=== PATIENT | female | born 1940 | race Caucasian/White ===

== ENCOUNTER 2020-12-19 10:47 | Emergency (ER) | payer OTHER, SELFPAY ==
[2020-12-19] VITALS (10 sets, daily range): BP systolic 167–200; BP diastolic 71–89; PULSE 62–98; RESP 14–22; TEMP 36.7; O2SAT 97–99
[2020-12-19 11:43] LABS: Add Manual Diff / Slide Review NO; Basophils Absolute Auto 100 /uL (0-100); Basophils Percent Auto 0.8 % (0-2); Eosinophils Absolute Auto 200 /uL (0-450); Eosinophils Percent Auto 3.2 % (2-4); Hematocrit 40.3 % (36-46); Hemoglobin 13.4 g/dL (12.0-16.0); Lymphocytes Absolute Auto 1200 /uL (1100-4500); Lymphocytes Percent Auto 17.1 % (25-40); Mean Corpuscular HGB Conc 33.2 % (30-36); Mean Corpuscular Volume 90.3 fL (80-100); Monocytes Absolute Auto 400 /uL (0-900); Neutrophils Absolute Auto 5400 /uL (1500-7000); Neutrophils Percent Auto 73.9 % (50-75); Platelet Count 203 X10^3/uL (150-400); Red Blood Cell Count 4.46 X10^6/uL (4.0-5.2); Red Cell Distribution Width 14.2 % (11.6-14.8); White Blood Cell Count 7.3 X10^3/uL (4.5-11.0)
[2020-12-19 11:47] LABS: INR 1.1 (0.9-1.3); Prothrombin Time 12.1 SECONDS (10.1-12.7)
[2020-12-19 11:50] LABS: PTT Partial Thromboplastin Tim 34 SECONDS (26.4-36.2)
[2020-12-19 11:51] LABS: Alanine Aminotransferase 33 IU/L (<35); Albumin 4.4 g/dL (3.5-5.0); Albumin Globulin Ratio 1.2 (1.0-2.8); Alkaline Phosphatase 92 U/L (38-126); Aspartate Aminotransferase 30 IU/L (14-36); BUN Creatinine Ratio 26.4 (6-22); Bilirubin Total 0.5 mg/dL (0.2-1.3); Blood Urea Nitrogen 19 mg/dL (7-17); Calcium 9.5 mg/dL (8.4-10.2); Carbon Dioxide 28 mmol/L (22-32); Chloride 104 mmol/L (98-107); Creatine Kinase 200 U/L (30-135); Estimated Glomerular Filt Rate > 60.0 mL/min (>60); Globulin 3.8 g/dL (1.7-4.1); Glucose 107 mg/dL (80-110); HEMOLYSIS < 15 (0-50); Lipase 182 U/L (23-300); Magnesium 2.1 mg/dL (1.6-2.3); Potassium 3.7 mmol/L (3.4-5.1); Sodium 140 mmol/L (137-145); Total Protein 8.2 g/dL (6.3-8.2)
[2020-12-19 12:02] LABS: Troponin I < 0.012 ng/mL (0.01-0.034)
[2020-12-19 12:06] LABS: CKMB % Relative Index 1.6 % (1.5-5.0); Creatine Kinase MB 3.14 ng/mL (<2.37)
[2020-12-19 12:32] LABS: TSH w/ Reflex to FT4 3.12 uIU/mL (0.47-4.68)
[2020-12-19 13:14] LABS: Bacteria Urine None Seen; RBC Urine None Seen (0-5/HPF); WBC Urine None Seen (0-5/HPF)
--- NOTE | 2020-12-19 13:28 | ED.GENADULT ---
HPI - General Adult General Chief complaint: Hypertension Stated complaint: blood pressure high for the last 3 days Time Seen by Provider: 12/19/20 12:44 Source: patient Mode of arrival: Ambulatory Limitations: no limitations History of Present Illness HPI narrative: Patient is a 80-year-old female with history of hypertension presenting with elevated blood pressure and back pain. She has been taking her blood pressure the last few days blood pressures have ranged from a systolic of 130 up to 190. She is currently hypertensive in the emergency department. She denies any chest pain or shortness of breath. Back pain seems to be in her thoracic area but also complaining of some left leg. She states that she takes 0.5 mg of amlodipine for blood pressure she took it last night. She denies any headache. He comes in today could her blood pressure remains persistently elevated. She has not taken anything yet for her back pain she denies any injury seems to be in her thoracic area. Due to mild language barrier person in room is translating. She is able to understand some and answer some questions. Related Data Allergies Allergy/AdvReac Type Severity Reaction Status Date / Time No Known Drug Allergies Allergy Verified 12/19/20 11:12 Review of Systems Review of Systems Narrative: GENERAL: Denies chills, fatigue, malaise, fever, sweats, travel HEENT: Denies sinus pain, ear pain, sore throat, difficulty swallowing, neck pain RESPIRATORY: Denies dyspnea, cough, wheezing, hemoptysis, sputum. CARDIOVASCULAR: Denies chest pain, palpitations, orthopnea, edema GASTROINTESTINAL: Denies nausea, vomiting, abdominal pain, diarrhea, constipation, melena. : Denies dysuria, frequency, incontinence, hematuria, urinary retention, flank pain. MUSCULOSKELETAL: See HPI SKIN: No rash, no erythema, no pruritus NEUROLOGIC: Denies weakness, dizziness, headache, numbness, change in speech, confusion PSYCHIATRIC: No concerning psychosocial issues. 12 point review of systems is negative except for those stated above and HPI Patient History Medical History Hypertension Social History Smoking Status: Never smoker Smoking Status: Never smoker alcohol intake frequency: 0-2 drinks per day Substance Use Type: does not use Exam Initial Vital Signs Initial Vital Signs: Vital Signs Temperature 98.1 F 12/19/20 11:08 Pulse Rate 98 H 12/19/20 11:08 Respiratory Rate 14 12/19/20 11:08 Blood Pressure 200/89 H 12/19/20 11:08 Pulse Oximetry 99 12/19/20 11:08 GENERAL: Alert well-appearing 80-year-old female and in no acute distress. HEENT: Head atraumatic,EOMI, pupils reactive, face symmetric, moist mucous membranes CARDIOVASCULAR: Regular rate and rhythm without murmurs, rubs or gallops. RESPIRATORY: Breath sounds equal bilaterally, no wheezes rales or rhonchi. ABDOMEN: Soft, nontender. Normoactive bowel sounds all 4 quadrants. No guarding or rebound. BACK: No vertebral tenderness no step-off, no real lower lumbar pain. Able to lift each leg without causing back pain. She is tender more in her thoracic but is not reproducible to palpation. : No CVA tenderness EXTREMITIES: Normal range of motion, no clubbing or edema. Neurovascularly intact. No pain and pelvis or hip NEUROLOGICAL: Alert and oriented x4.Normal gait and speech. Cranial nerves II through XII grossly intact. SKIN: Warm, dry, no laceration, no petechiae, no rashes or lesions. Course Orders Ordered: ED Orders 12/19/20 11:17 EKG-12 Lead Stat 12/19/20 11:30 Complete Blood Count AUTO DIFF Stat Comprehensive Metabolic Panel Stat Lipase Stat Magnesium Stat Partial Thromboplastin Time Stat Prothrombin Time INR Stat TSH w/ Reflex to FT4 Stat Troponin & CK Cardiac Panel Stat 12/19/20 12:55 Urine Microscopic Stat 12/19/20 13:47 CT angio chest abdomen pelvis Stat Discontinued Medications Sodium Chloride (Normal Saline 0.9%) 1,000 mls @ 1,000 mls/hr IV BOLUS ONE Stop: 12/19/20 14:37 Last Infusion: 12/19/20 15:19 Dose: 0 mls/hr Documented by: Admin: 12/19/20 14:22 Dose: 1,000 mls/hr Documented by: LAUREN Ketorolac Tromethamine (Ketorolac 30 Mg/Ml Vial) 15 mg IV NOW ONE Stop: 12/19/20 16:32 Last Admin: 12/19/20 16:38 Dose: 15 mg Documented by: CAROLEE Vital Signs Vital signs: Vital Signs - 8 hr 12/19/20 12:48 12/19/20 13:00 12/19/20 13:30 Pulse Rate 65 66 72 Respiratory Rate 22 16 21 Blood Pressure 195/88 H 191/89 H Pulse Oximetry 99 97 98 12/19/20 16:26 12/19/20 16:27 12/19/20 16:30 Pulse Rate 74 72 Respiratory Rate Blood Pressure 174/79 H Pulse Oximetry 98 98 98 12/19/20 16:41 12/19/20 16:43 12/19/20 16:58 Pulse Rate 65 62 Respiratory Rate Blood Pressure 167/71 H 179/81 H Pulse Oximetry 98 98 Medical Decision Making Lab Data Lab results reviewed: Yes I reviewed the patient's lab results. Result diagrams: 12/19/20 11:30 12/19/20 11:30 Labs: Lab Results 12/19/20 12/19/20 12/19/20 Range/Units 11:30 11:30 11:30 WBC 7.3 (4.5-11.0) X10^3/uL RBC 4.46 (4.0-5.2) X10^6/uL Hgb 13.4 (12.0-16.0) g/dL Hct 40.3 (36-46) % MCV 90.3 (80-100) fL MCH 30.0 (26-34) PG MCHC 33.2 (30-36) % RDW 14.2 (11.6-14.8) % Plt Count 203 (150-400) X10^3/uL Neut % (Auto) 73.9 (50-75) % Lymph % (Auto) 17.1 L (25-40) % [place] % (Auto) 5.0 (3-14) % Eos % (Auto) 3.2 (2-4) % Baso % (Auto) 0.8 (0-2) % Neut # (Auto) 5400 (0043-6870) /uL Lymph # (Auto) 1200 (6902-6458) /uL [place] # (Auto) 400 (0-900) /uL Eos # (Auto) 200 (0-450) /uL Baso # (Auto) 100 (0-100) /uL PT 12.1 (10.1-12.7) SECONDS INR 1.1 (0.9-1.3) APTT 34 (26.4-36.2) SECONDS Sodium 140 (137-145) mmol/L Potassium 3.7 (3.4-5.1) mmol/L Chloride 104 (98-107) mmol/L Carbon Dioxide 28 (22-32) mmol/L BUN 19 H (7-17) mg/dL Creatinine 0.72 (0.52-1.04) mg/dL Estimated GFR > 60.0 (>60) mL/min BUN/Creatinine Ratio 26.4 H (6-22) Glucose 107 (80-110) mg/dL Calcium 9.5 (8.4-10.2) mg/dL Magnesium 2.1 (1.6-2.3) mg/dL Total Bilirubin 0.5 (0.2-1.3) mg/dL AST 30 (14-36) IU/L ALT 33 (<35) IU/L Alkaline Phosphatase 92 (38-126) U/L Total Creatine Kinase 200 H (30-135) U/L CK-MB (CK-2) 3.14 H (<2.37) ng/mL CK-MB (CK-2) Rel Index 1.6 (1.5-5.0) % Troponin I < 0.012 (0.01-0.034) ng/mL Total Protein 8.2 (6.3-8.2) g/dL Albumin 4.4 (3.5-5.0) g/dL Globulin 3.8 (1.7-4.1) g/dL Albumin/Globulin Ratio 1.2 (1.0-2.8) Lipase 182 (23-300) U/L TSH (0.47-4.68) uIU/mL Urine RBC (0-5/HPF) Urine WBC (0-5/HPF) Urine Bacteria (None) Ur Culture Indicated? 12/19/20 12/19/20 Range/Units 11:30 12:55 WBC (4.5-11.0) X10^3/uL RBC (4.0-5.2) X10^6/uL Hgb (12.0-16.0) g/dL Hct (36-46) % MCV (80-100) fL MCH (26-34) PG MCHC (30-36) % RDW (11.6-14.8) % Plt Count (150-400) X10^3/uL Neut % (Auto) (50-75) % Lymph % (Auto) (25-40) % [place] % (Auto) (3-14) % Eos % (Auto) (2-4) % Baso % (Auto) (0-2) % Neut # (Auto) (6810-5692) /uL Lymph # (Auto) (2095-3543) /uL [place] # (Auto) (0-900) /uL Eos # (Auto) (0-450) /uL Baso # (Auto) (0-100) /uL PT (10.1-12.7) SECONDS INR (0.9-1.3) APTT (26.4-36.2) SECONDS Sodium (137-145) mmol/L Potassium (3.4-5.1) mmol/L Chloride (98-107) mmol/L Carbon Dioxide (22-32) mmol/L BUN (7-17) mg/dL Creatinine (0.52-1.04) mg/dL Estimated GFR (>60) mL/min BUN/Creatinine Ratio (6-22) Glucose (80-110) mg/dL Calcium (8.4-10.2) mg/dL Magnesium (1.6-2.3) mg/dL Total Bilirubin (0.2-1.3) mg/dL AST (14-36) IU/L ALT (<35) IU/L Alkaline Phosphatase (38-126) U/L Total Creatine Kinase (30-135) U/L CK-MB (CK-2) (<2.37) ng/mL CK-MB (CK-2) Rel Index (1.5-5.0) % Troponin I (0.01-0.034) ng/mL Total Protein (6.3-8.2) g/dL Albumin (3.5-5.0) g/dL Globulin (1.7-4.1) g/dL Albumin/Globulin Ratio (1.0-2.8) Lipase (23-300) U/L TSH 3.12 (0.47-4.68) uIU/mL Urine RBC None seen (0-5/HPF) Urine WBC None seen (0-5/HPF) Urine Bacteria None seen (None) Ur Culture Indicated? Cult not indicated Urine Dip Bedside Urine Glucose Negative Bedside Urine Bilirubin - Negative Bedside Urine Ketone - Negative Urine Specific [place] 1.015 Bedside Urine Occult Blood +++ Bedside Urine pH 6.0 Bedside Urine Protein - Negative Bedside Urine Urobilinogen - Negative Bedside Urine Nitrite - Negative Bedside Urine Leukocytes - Negative Esterase Point of care testing: Urine Dip Bedside Urine Glucose Negative Bedside Urine Bilirubin - Negative Bedside Urine Ketone - Negative Urine Specific [place] 1.015 Bedside Urine Occult Blood +++ Bedside Urine pH 6.0 Bedside Urine Protein - Negative Bedside Urine Urobilinogen - Negative Bedside Urine Nitrite - Negative Bedside Urine Leukocytes - Negative Esterase Imaging Data CT scan - abdomen/pelvis: Radiologist's Impression: PROCEDURE: CT ANGIO CHEST ABDOMEN PELVIS INDICATIONS: back pain TECHNIQUE: Precontrast 5 mm thick sections acquired from the lung apices to the iliac crests. After the administration of intravenous contrast, 2.5 mm thick sections again acquired from the lung apices to the iliac crests. Maximum intensity projection (MIP) oblique sagittal and coronal reformats were then acquired. For radiation dose reduction, the following was used: automated exposure control. COMPARISON: None. FINDINGS: CHEST: Lungs: Scattered subsegmental atelectasis and/or scarring. No focal consolidation. Airway thickening in keeping with nonspecific bronchitis and/or reactive airways disease. Pleura: No pleural effusions or pneumothorax. Heart: Heart size is normal. No pericardial effusion. Chest nodes: Normal. Thyroid gland: Normal Aorta: Ascending thoracic aorta measures 3.8 cm in diameter. No evidence of aortic dissection. No periaortic hemorrhage identified. Scattered vascular calcifications are seen in the aorta. Pulmonary arteries: Normal. No intraluminal filling defect seen. Esophagus: Small hiatal hernia. ABDOMEN: Liver: Normal. Gallbladder: Normal Bile ducts: Normal. Pancreas: Normal. Spleen: Normal. Adrenals: Normal. Kidneys and ureters: Subcentimeter renal foci, statistically cysts, although technically too small to characterize accurately and therefore nonspecific. No hydronephrosis. Stomach and duodenum: Trace hiatal hernia. Bowel: Normal. Other: No free fluid or air. Abdominal nodes: Normal. Aorta and IVC: Normal in size. No evidence of periaortic hemorrhage. No dissection seen. Scattered vascular calcifications in the aorta. Ventral wall: Normal. PELVIS: Bladder: Normal. There is a large right adrenal cystic lesion measuring 5.5 x 4.8 cm. There is grossly simple appearance although recommend further evaluation with dedicated ultrasound and gynecologic consultation based on large size. Inguinal region: No hernia. Pelvic nodes: Normal. Bones: Spondylytic changes and facet arthropathy. T11 mild compression fracture although age indeterminate. IMPRESSION: Age-indeterminate mild T11 compression fracture. Please correlate clinically to determine acuity. No evidence of aortic dissection or periaortic hemorrhage. Large 5.5 cm right adnexal cystic lesion presumably ovarian in etiology. Recommend further evaluation with dedicated ultrasound and gynecologic consultation based on large size, to exclude cystic ovarian neoplasm Findings (including all critical results, if any) and recommendations were personally telephoned and discussed with Dr. Floyd on 12-19-20 16:12 Approved by: Lukas Samuels M.D. on 12/19/2020 at 16:14 ECG Data Attestation: I personally reviewed and interpreted this ECG as follows: Interpretation: Normal sinus rhythm rate 66 p.r. interval 166 QRS [address] changes MDM Narrative Medical decision making narrative: Patient is is persistently hypertension but it does improve. With back pain and mild language barrier concern for possible dissection. Toradol did help with pain. His CT is negative for dissection but she is found to have a 5.5 cm cyst presumed to be ovarian. She is here visiting her son and goes back and forth between [place] she is here for a few more weeks. I have called and spoken with Dr. hinojosa who agrees that this does need further outpatient workup. Patient information is exchanged and her office will call the patient. Son states that she actually has an appointment with a accountant controller in a couple of weeks. For now I recommend increasing amlodipine to 10 mg once a day and also continue checking blood pressure. Discharge Plan Departure Patient Disposition: Home Clinical Impression: Hypertension, Cyst, ovarian Instructions: DI for High Blood Pressure, DI for Ovarian Cyst Activity Restrictions/Additional Instructions: *You have been diagnosed with high blood pressure, ovarian cyst *What to do: Please follow-up with Cardiology in regards to your blood pressure. You will also need follow up four your ovarian cyst. I have called and spoken with Dr. hinojosa you should hear from them early next week if you do not please call their *Continue to take medications as directed Increase amlodipine to 10 mg once daily *Follow up with your primary care provider in 2-3 days *Return to ER if you should have increasing back pain, chest pain, shortness of breath, abdominal pain, persistent vomiting or any new, worsening or concerning symptoms Referrals: [facility] [Outside] [place],MD Lily [Physician] -
[2020-12-19 13:46] LABS: Culture Indicated Urine Cult Not Indicated
--- NOTE | 2020-12-19 13:47 | DI.CT.S_ITS ---
PROCEDURE: CT ANGIO CHEST ABDOMEN PELVIS INDICATIONS: back pain TECHNIQUE: Precontrast 5 mm thick sections acquired from the lung apices to the iliac crests. After the administration of intravenous contrast, 2.5 mm thick sections again acquired from the lung apices to the iliac crests. Maximum intensity projection (MIP) oblique sagittal and coronal reformats were then acquired. For radiation dose reduction, the following was used: automated exposure control. COMPARISON: None. FINDINGS: CHEST: Lungs: Scattered subsegmental atelectasis and/or scarring. No focal consolidation. Airway thickening in keeping with nonspecific bronchitis and/or reactive airways disease. Pleura: No pleural effusions or pneumothorax. Heart: Heart size is normal. No pericardial effusion. Chest nodes: Normal. Thyroid gland: Normal Aorta: Ascending thoracic aorta measures 3.8 cm in diameter. No evidence of aortic dissection. No periaortic hemorrhage identified. Scattered vascular calcifications are seen in the aorta. Pulmonary arteries: Normal. No intraluminal filling defect seen. Esophagus: Small hiatal hernia. ABDOMEN: Liver: Normal. Gallbladder: Normal Bile ducts: Normal. Pancreas: Normal. Spleen: Normal. Adrenals: Normal. Kidneys and ureters: Subcentimeter renal foci, statistically cysts, although technically too small to characterize accurately and therefore nonspecific. No hydronephrosis. Stomach and duodenum: Trace hiatal hernia. Bowel: Normal. Other: No free fluid or air. Abdominal nodes: Normal. Aorta and IVC: Normal in size. No evidence of periaortic hemorrhage. No dissection seen. Scattered vascular calcifications in the aorta. Ventral wall: Normal. PELVIS: Bladder: Normal. There is a large right adrenal cystic lesion measuring 5.5 x 4.8 cm. There is grossly simple appearance although recommend further evaluation with dedicated ultrasound and gynecologic consultation based on large size. Inguinal region: No hernia. Pelvic nodes: Normal. Bones: Spondylytic changes and facet arthropathy. T11 mild compression fracture although age indeterminate. IMPRESSION: Age-indeterminate mild T11 compression fracture. Please correlate clinically to determine acuity. No evidence of aortic dissection or periaortic hemorrhage. Large 5.5 cm right adnexal cystic lesion presumably ovarian in etiology. Recommend further evaluation with dedicated ultrasound and gynecologic consultation based on large size, to exclude cystic ovarian neoplasm Findings (including all critical results, if any) and recommendations were personally telephoned and discussed with Dr. Floyd on 12-19-20 16:12 Approved by: Lukas Samuels M.D. on 12/19/2020 at 16:14
[2020-12-19] MEDS: SODIUM CHLORIDE 0.9% 1,000 ML 1000 ML IV (14:22)
[2020-12-19] MEDS: KETOROLAC 30 MG/ML VIAL 15 MG IV (16:38)
== END 2020-12-19 17:03 | disposition home or self-care (01) ==
PROVIDERS: Emergency Provider Emergency Medicine
DX: I10 Essential (primary) hypertension (principal); N83.201 Unspecified ovarian cyst, right side; M54.9 Dorsalgia, unspecified
CPT/HCPCS: 36415; 71275; 74174; 80053; 81003; 81015; 82550; 82553; 83690; 83735; 84443; 84484; 85025; 85610; 85730; 93005; 93010; 96361; 96374; 99284; J1885

== ENCOUNTER 2023-09-20 10:02 | Emergency (ER) | payer OTHER, SELFPAY ==
[2023-09-20 10:24] VITALS: BP 142/67; PULSE 83; RESP 14; TEMP 36.6; O2SAT 97; BMI 24.5
--- NOTE | 2023-09-20 10:29 | DI.RAD.S_ITS ---
PROCEDURE: XR KNEE RT 3V INDICATIONS: fall with knee pain TECHNIQUE: 3 views of the knee were acquired. COMPARISON: None. FINDINGS: Bones: No fractures or dislocations. Mild tricompartmental osteophytosis. No significant joint space narrowing No suspicious bony lesions. Soft tissues: Small joint effusion. No suspicious soft tissue calcifications. Atherosclerotic vascular calcifications IMPRESSION: No acute osseous abnormality. Small joint effusion. If pain persists with conservative management, consider repeat x-ray in 10-14 days or cross-sectional imaging. Dictated by: Mata Dickinson M.D. on 09/20/2023 at 10:53 Approved by: Mata Dickinson M.D. on 09/20/2023 at 10:54
--- NOTE | 2023-09-20 11:11 | ED.FALL ---
HPI - Fall <Gaviota Padilla PA-C - Last Filed: 09/20/23 11:46> General Chief Complaint: Fall Stated Complaint: fall, rt knee pain Time Seen by Provider: 09/20/23 11:08 Source: patient Mode of arrival: Wheelchair History of Present Illness HPI Narrative: 83-year-old female presents to the ED status post a mechanical fall sustained yesterday. Patient states that her left shoe was caught on some cement, which caused her to fall forward and strike her right knee. Patient denies head strike or loss of consciousness. Patient is not on blood thinners. Patient was able to ambulate right after the fall. Patient is currently able to walk, however endorses pain in the right knee when walking. No numbness, tingling, weakness. Patient took some Tylenol for pain, and patient is wearing a knee brace. Related Data Allergies Allergy/AdvReac Type Severity Reaction Status Date / Time No Known Drug Allergies Allergy Verified 09/20/23 10:24 Review of Systems <Gaviota Padilla PA-C - Last Filed: 09/20/23 11:46> Constitutional Constitutional: Denies chills, Denies fatigue, Denies fever(s), Denies frequent falls, Denies lethargy and Denies weakness Eyes Eyes: Denies change in vision, Denies eye discharge, Denies irritation and Denies loss of vision ENT Ears, Nose, Mouth, and Throat: Denies change in voice, Denies dizziness, Denies neck pain, Denies sore throat and Denies throat swelling Cardiovascular Cardiovascular: Denies chest pain, Denies irregular heart rhythm, Denies lightheadedness, Denies palpitations, Denies dyspnea, Denies dyspnea on exertion and Denies orthopnea Respiratory Respiratory: Denies cough, Denies dyspnea, Denies dyspnea on exertion and Denies wheezing Gastrointestinal Gastrointestinal: Denies abdominal pain, Denies change in bowel habits, Denies diarrhea, Denies nausea and Denies vomiting Musculoskeletal Musculoskeletal: Denies neck pain and Denies numbness Comments: Right knee pain Integumentary/Breasts Skin/Breast: Denies pruritus, Denies erythema, Denies rash and Denies wounds Neurologic Neurologic: Denies behavioral changes, Denies confusion, Denies dizziness, Denies frequent falls, Denies loss of vision, Denies numbness and Denies weakness Psychiatric Psychiatric: Denies anxiety, Denies behavioral changes, Denies confusion, Denies depression, Denies homicidal ideation and Denies suicidal ideation Endocrine Endocrine: Denies fatigue, Denies flushing and Denies palpitations Hematologic/Lymphatic Hematologic/Lymphatic: Denies easy bruising Allergic/Immunologic Allergic/Immunologic: Denies urticaria, Denies throat swelling and Denies wheezing Patient History <Gaviota Padilla PA-C - Last Filed: 09/20/23 11:46> Medical History Hypertension Social History Smoking Status: Never smoker Smoking Status: Never smoker alcohol intake frequency: holidays/special occasions only Substance Use Type: does not use Exam <Gaviota Padilla PA-C - Last Filed: 09/20/23 11:46> Narrative Exam Narrative: Const General:?cooperative, healthy appearing and comfortable [place] Head:?normal to inspection Ears:?hearing grossly normal bilaterally Nose:?external nose normal Face and sinus:?normal facial exam and sinuses nontender Mouth:?oral mucosae normal Throat:?posterior oropharynx normal Eyes General:?appearance normal, both eyes and all related structures Neck Neck:?normal visual inspection and no lymphadenopathy noted Resp Effort & Inspection:?normal respiratory effort Auscultation:?clear to auscultation bilaterally Cardio Rate:?regular rate Rhythm:?regular rhythm Musculoskeletal There is a small abrasion to the front of the right knee. No swelling or bruising. There is full range of motion. Strength and sensation is intact. Patient is able to bear weight and walk. Patient is neurovascularly intact. Neuro General:?patient alert, patient awake and patient oriented x3 Initial Vital Signs Initial Vital Signs: Vital Signs Temperature 97.8 F 09/20/23 10:24 Pulse Rate 83 09/20/23 10:24 Respiratory Rate 14 09/20/23 10:24 Blood Pressure 142/67 H 09/20/23 10:24 Pulse Oximetry 97 09/20/23 10:24 Oxygen Delivery Method Room Air 09/20/23 10:24 <Maris Bass DO - Last Filed: 09/23/23 22:48> Initial Vital Signs Initial Vital Signs: Vital Signs Temperature 97.8 F 09/20/23 10:24 Pulse Rate 83 09/20/23 10:24 Respiratory Rate 14 09/20/23 10:24 Blood Pressure 142/67 H 09/20/23 10:24 Pulse Oximetry 97 09/20/23 10:24 Oxygen Delivery Method Room Air 09/20/23 10:24 Course <Gaviota Padilla PA-C - Last Filed: 09/20/23 11:46> Orders Ordered: ED Orders 09/20/23 10:29 XR knee RT 3V Stat Vital Signs Vital signs: Vital Signs - 8 hr 09/20/23 10:24 09/20/23 11:22 Temperature 97.8 F 98.3 F Pulse Rate 83 72 Respiratory Rate 14 16 Blood Pressure 142/67 H 146/67 H Pulse Oximetry 97 97 Oxygen Delivery Method Room Air Room Air <Maris Bass DO - Last Filed: 09/23/23 22:48> Orders Ordered: ED Orders 09/20/23 10:29 XR knee RT 3V Stat Vital Signs Vital signs: Vital Signs - 8 hr 09/20/23 10:24 09/20/23 11:22 Temperature 97.8 F 98.3 F Pulse Rate 83 72 Respiratory Rate 14 16 Blood Pressure 142/67 H 146/67 H Pulse Oximetry 97 97 Oxygen Delivery Method Room Air Room Air MDM - Fall <Gaviota Padilla PA-C - Last Filed: 09/20/23 11:46> MDM Narrative Medical decision making narrative: 83-year-old female presents to the ED status post a mechanical fall sustained yesterday. Concern for fracture/dislocation versus musculoskeletal sprain/strain versus abrasion versus other. X-ray was obtained which shows no acute findings. Discussed supportive care with patient including ice packs, heat packs, Tylenol, ibuprofen. Recommend follow-up with PCP as soon as possible. ED return precautions were discussed with patient. Patient verbalized understanding. Medical records reviewed: Yes Discharge Plan Departure Patient Disposition: Home Clinical Impression: Acute knee pain Qualifiers: Laterality: right Qualified Code(s): M25.561 - Pain in right knee Instructions: How to Prevent Falls Activity Restrictions/Additional Instructions: You were evaluated in the ED today for a knee injury. Your x-ray did not show any fractures or dislocation. It appears you have a contusion or bruise to the knee which will heal and feel better over the next few days. You may continue to apply heat packs or ice packs as per comfort. You may also take Tylenol or ibuprofen for pain relief. Please follow-up with your PCP as soon as possible. Return to the ED if you have worsening symptoms, numbness, tingling, weakness. Stand Alone Forms: Patient Portal/API ED Sign-out <Maris Bass DO - Last Filed: 09/23/23 22:48> Cosign ED Attending [place] Attestation: I was immediately available in the department for consultation.
[2023-09-20 11:22] VITALS: BP 146/67; PULSE 72; RESP 16; TEMP 36.8; O2SAT 97
== END 2023-09-20 11:20 | disposition home or self-care (01) ==
PROVIDERS: Emergency Provider Student in an Organized Health Care Education/Training Program
DX: M25.561 Pain in right knee (principal)
CPT/HCPCS: 73562; 99282; 99283

== ENCOUNTER → 2024-08-27 12:49 | Outpatient (CLI) | payer OTHER, SELFPAY ==
--- NOTE | 2024-08-27 12:54 | DI.RAD.S_ITS ---
PROCEDURE: XR FOOT RT MIN 3V INDICATIONS: R FOOT PAIN TECHNIQUE: 3 views of the foot were acquired. COMPARISON: None. FINDINGS: Bones: Dorsal calcification projects over the base of the metatarsals on the lateral view only, measuring 8 millimeters. Plantar and dorsal calcaneal enthesophytes. Soft tissues: No tibiotalar joint effusion. Achilles tendon appears normal. IMPRESSION: 8 millimeter calcification projecting over the dorsal aspect of the metatarsal bases. No correlate seen on the frontal or oblique views. Correlate with recent trauma, point tenderness and consider CT for confirmation of fracture Dictated by: Nimesh Uriarte M.D. on 08/27/2024 at 15:43 Approved by: Nimesh Uriarte M.D. on 08/27/2024 at 15:44
== END ==
PROVIDERS: Visit Provider Family Medicine
DX: M79.89 Other specified soft tissue disorders (principal); M77.31 Calcaneal spur, right foot
CPT/HCPCS: 73630

== ENCOUNTER → 2024-09-04 07:14 | Outpatient (CLI) | payer OTHER, SELFPAY ==
--- NOTE | 2024-09-04 07:16 | DI.US.S_ITS ---
PROCEDURE: US PERIPH VENOUS LOW EXTREM RT INDICATIONS: soft tissue disorder TECHNIQUE: Real-time imaging, as well as color and pulse Doppler interrogation, were performed of the lower extremity deep veins from the inguinal ligament to the popliteal fossa, with documentation of the visualized calf veins. COMPARISON: None. FINDINGS: The common femoral, femoral, popliteal, and the visualized calf veins are normally compressible, and free of intraluminal thrombus. Color and pulse Doppler demonstrate normal phasic intraluminal flow. There is normal augmentation response to distal compression maneuver. IMPRESSION: No findings of lower extremity deep venous thrombosis. Dictated by: Nimesh Uriarte M.D. on 09/04/2024 at 12:04 Approved by: Nimesh Uriarte M.D. on 09/04/2024 at 12:04
== END ==
PROVIDERS: Visit Provider Family Medicine
DX: M79.89 Other specified soft tissue disorders (principal)
CPT/HCPCS: 93971